=== PATIENT | female | born 1955 | race Caucasian/White ===

== ENCOUNTER 2020-08-05 08:40 | Outpatient (CLI) | payer MEDICARE, SELFPAY ==
--- NOTE | 2020-08-05 09:06 | XR_ITS ---
WS: [id number] Thoracic spine, 3 views, 08/05/2020 Clinical Data: MID BACK PAIN Comparison: None. Findings: No compression fractures are seen. The disc heights are normal. There is a minimal dextroscoliosis. There is diffuse osteoporosis. Minimal osteoarthritic spurring of the mid thoracic vertebral bodies is seen. There is a anterior cervical disc fusion. XR/XR thoracic spine 2V [id number] Impression: Minimal osteoarthritis and osteoporosis.
== END 2020-08-05 08:41 | disposition home or self-care (01) ==
PROVIDERS: PCP Nurse Practitioner Family; Visit Provider Nurse Practitioner Family
DX: M81.0 Age-related osteoporosis without current pathological fracture (principal); M47.814 Spondylosis without myelopathy or radiculopathy, thoracic region
CPT/HCPCS: 72070

== ENCOUNTER 2021-07-18 17:17 | Inpatient (IN) | payer MEDICARE, SELFPAY ==
[2021-07-18] VITALS (7 sets, daily range): BP systolic 73–148; BP diastolic 49–82; PULSE 77–83; RESP 15–22; TEMP 36.5; O2SAT 95–100; BMI 22.4
--- NOTE | 2021-07-18 17:59 | XRR_ITS ---
PROCEDURE INFORMATION: Exam: XR Chest Exam date and time: 07/18/2021 5:59 PM Age: 66 years old Clinical indication: Cough; Additional info: Dyspnea/cough TECHNIQUE: Imaging protocol: XR of the chest. Views: 1 view. COMPARISON: No relevant prior studies available. FINDINGS: Lungs: Minimal atelectasis in the left lung base. The right lung is clear. Pleural spaces: Unremarkable. No pleural effusion. No pneumothorax. Heart/Mediastinum: Unremarkable. No cardiomegaly. Bones/joints: C-spine hardware. XR/XR chest 1V portable [id number] IMPRESSION: No acute finding.
--- NOTE | 2021-07-18 17:59 | CTR_ITS ---
PROCEDURE INFORMATION: Exam: CT Abdomen And Pelvis With Contrast Exam date and time: 07/18/2021 5:59 PM Age: 66 years old Clinical indication: Nausea and vomiting; Abdominal pain; Prior surgery; Surgery type: Gb, hyst; Additional info: Abd pain TECHNIQUE: Imaging protocol: Computed tomography of the abdomen and pelvis with contrast. Radiation optimization: All CT scans at this facility use at least one of these dose optimization techniques: automated exposure control; mA and/or kV adjustment per patient size (includes targeted exams where dose is matched to clinical indication); or iterative reconstruction. Contrast material: OMNI 300; Contrast volume: 95 ml; Contrast route: INTRAVENOUS (IV); COMPARISON: CR (CHEST, ) 07/18/2021 6:13 PM RADIATION DOSE METRICS: Total DLP (mGy-cm): 848.44 FINDINGS: Lungs: Mild atelectasis in the lingula. Liver: Normal. No mass. Gallbladder and bile ducts: Multiple calcified stones in the gallbladder. No wall thickening. The bile ducts are normal. Pancreas: Diffuse pancreatic parenchymal edema. No focal lesion identified. Acute peripancreatic fluid and fat stranding, extending to the left pericolic gutter. No organized pseudocyst. Spleen: Calcified granuloma in a normal sized spleen. Adrenal glands: Normal. No mass. Kidneys and ureters: Multiple cortical and central hypodensities in the left kidney are too small to characterize but are most likely cysts. No follow-up imaging is recommended. No calculus or hydronephrosis. Stomach and bowel: Mild wall thickening in the 2nd portion of the duodenum. Mild dilatation of multiple loops of proximal small bowel measuring up to 3.0 cm. No transition point or obstruction. The mid and distal small bowel is within normal limits. The stomach and colon are unremarkable. Appendix: The appendix is not visualized. No secondary signs of appendicitis. Intraperitoneal space: Unremarkable. No free air. No significant fluid collection. Vasculature: Atherosclerotic calcifications. 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 Mild stenosis at the origin of the superior mesenteric artery. Lymph nodes: Unremarkable. No enlarged lymph nodes. Urinary bladder: Unremarkable as visualized. Reproductive: The uterus is absent. Normal small ovaries. Bones/joints: Minimal anterior wedging of T12. Soft tissues: Unremarkable. CT/CT abdomen pelvis w con* [id number] IMPRESSION: 1. Findings consistent with acute interstitial edematous pancreatitis. 2. Acute peripancreatic fluid. No organized pseudocyst. 3. Cholelithiasis. 4. Multiple mildly dilated loops of proximal small bowel could represent ileus. 5. Mild wall thickening in the proximal duodenum. This is most likely related to the adjacent inflamed pancreas. COMMENTS: Consistent with the [employer]'s Incidental Findings Committee white paper (J Am Kirstie Radiol 2018): Any incidental renal lesion less than 1 cm or classified as too small to characterize, or any incidental cystic renal lesion characterized as simple-appearing, is likely benign. No follow-up imaging is recommended for these lesions per consensus recommendations based on imaging criteria.
--- NOTE | 2021-07-18 18:13 | W.ED.ABDPA2 ---
HPI - Abdominal Pain General: Chief Complaint: Abdominal Pain Stated Complaint: ABD PAINS Time Seen by Provider: 07/18/21 17:46 Source: patient Mode of arrival: ambulatory Limitations: no limitations History of Present Illness: HPI narrative: 66-year-old female states that starting 2 hours ago she had immediate onset of epigastric abdominal pain that was very sharp in nature with vomiting. States she has vomited twice states the pain is currently a 8 out of 10 is worse with palpation improved with rest denies any diarrhea denies any history of pain like this before she has had an appendectomy in the past. Associated Symptoms: Reports nausea and vomiting; Denies chills, dysuria and fever(s) Review of Systems Const: Denies: fever(s), chills, body aches or change in appetite Eyes: Denies: blurry vision or eye discomfort ENMT: Denies: throat pain or dental pain Card: Denies: chest pain Resp: Denies: dyspnea GI: Reports: abdominal pain, nausea and vomiting : Denies: dysuria Musc: Denies: neck pain or back pain Skin/Breast: Denies: rash Neuro: Denies: headache(s) Psych: Denies: depression Janusz/Lymph: Denies: easy bruising All/Imm: Denies: urticaria Physical Exam Const: COMMON NORMALS: no acute distress, patient oriented x3 and healthy appearing HENMT: COMMON NORMALS: normocephalic and atraumatic HEAD & SCALP: normocephalic and atraumatic Eye: COMMON NORMALS: Equal, round and reactive pupils present and EOMs intact bilaterally PUPIL: Yes Equal, round and reactive pupils present Neck/C-Spine: COMMON NORMALS: full ROM and supple Chest: COMMONS NORMALS: normal inspection of the chest and normal palpation of entire chest wall Resp: COMMON NORMALS: normal respiratory effort, No retractions, No use of accessory muscles and clear to auscultation bilaterally AUSCULTATION: clear to auscultation bilaterally Cardio: COMMON NORMALS: regular rate, regular rhythm and No murmurs present (Cardio) RATE: regular rate RHYTHM: regular rhythm GI: COMMON NORMALS: Normal to inspection, nondistended, normoactive bowel sounds present, Soft to palpation and no masses PALPATION: Yes Soft to palpation and Yes Tenderness to palpation present (GI) (epigastric) Extremity: COMMON NORMALS: normal to inspection and full ROM Neuro: COMMON NORMALS: patient oriented x3, moves all extremities and no focal motor deficits Psych: COMMON NORMALS: mental status grossly normal, Normal thought process present and cooperative THOUGHT PROCESS: Normal thought process present Skin: COMMON NORMALS: no rashes or lesions noted and no wounds GENERAL SKIN EXAM: no rashes or lesions noted Course Vital Signs: Vital signs: Vital Signs Temperature 97.7 F 07/18/21 17:35 Pulse Rate 77 07/18/21 21:27 Respiratory Rate 20 H 07/18/21 22:47 Blood Pressure 147/75 07/18/21 21:27 Pulse Oximetry 96 07/18/21 22:47 MDM - Abdominal Pain MDM Narrative: Medical decision making narrative: Patient presents here with pancreatitis likely gallstone pancreatitis. Pain is much improved here after Dilaudid patient had MRCP no signs of choledocholithiasis I spoke to general surgery who is consulted Dr. Espinoza also spoke to the hospitalist and will admit here for her pancreatitis. Lab Data: Labs: Lab Results 07/18/21 07/18/21 07/18/21 18:00 18:10 18:10 WBC 20.1 10^3/uL H 10 ^3/uL (4.0-10.0) RBC 3.95 10^6/uL L 10 ^6/uL (4.1-5.3) Hgb 12.2 g/dL g/dL (11.5-15.3) Hct 37.8 % % (37.0-47.0) MCV 95.7 fl fl (81-99) MCH 30.9 pg pg (28.0-34.0) MCHC 32.3 g/dL g/dL (30.0-36.0) RDW 11.7 % L % (12.1-15.1) Plt Count 308 10^3/cmm 10^3 /cmm (130-400) MPV 10.3 fL fL (7.4-10.4) Neut % (Auto) 70.9 % % Lymph % (Auto) 20.9 % % Bollinger % (Auto) 6.1 % % Eos % (Auto) 1.1 % % Baso % (Auto) 0.5 % % Neut # (Auto) 14.23 10^3/uL H 1 0^3/uL (1.8-7.7) Lymph # (Auto) 4.2 10^3/uL 10^3/ uL (0.8-4.8) Bollinger # (Auto) 1.2 10^3/uL H 10^ 3/uL (0.2-0.9) Eos # (Auto) 0.2 10^3/uL 10^3/ uL (0.0-0.8) Baso # (Auto) 0.1 10^3/uL 10^3/ uL (0.0-0.1) Nucleated RBC % (a uto) 0 % % Nucleated RBCs # 0.0 /100WBC /100W BC Sodium 143 mmol/L mmol/L (136-145) Potassium 3.5 mmol/L mmol/L (3.5-5.1) Chloride 109 mmol/L H mmol /L (98-107) Carbon Dioxide 17 mmol/L L mmol/ L (22-29) Anion Gap 20.5 H (5-19) BUN 17 mg/dL mg/dL (8-23) Creatinine 0.8 mg/dL mg/dL (0.5-0.9) GFR Calculation 71.3 mL/min L mL/ min (90-130) Glucose 139 mg/dL H mg/dL (65-115) POC Glucose Calculated Osmolal ity 300 mOsm/kg H mOs m/kg (285-295) Lactic Acid Calcium 8.4 mg/dL L mg/dL (8.5-10.5) Magnesium 1.4 mg/dL L mg/dL (1.7-2.3) Total Bilirubin 0.4 mg/dL mg/dL (0.15-1.2) AST 27 U/L U/L (0-32) ALT 19 U/L U/L (0-33) Alkaline Phosphata se 64 IU/L IU/L (35-105) Total Protein 6.4 g/dL L g/dL (6.6-8.7) Albumin 3.8 g/dL g/dL (3.5-5.2) Globulin 2.6 g/dL g/dL (1.3-4.6) Triglycerides 75 mg/dL mg/dL (0-150) Lipase > 97068 U/L H U/L (13-60) Urine Color Urine Appearance Urine pH Ur Specific Gravit y Urine Protein Urine Glucose (UA) Urine Ketones Urine Blood Urine Nitrate Urine Bilirubin Urine Urobilinogen Ur Leukocyte Olamide ase 07/18/21 07/18/21 07/18/21 18:10 19:38 21:57 WBC RBC Hgb Hct MCV MCH MCHC RDW Plt Count MPV Neut % (Auto) Lymph % (Auto) Bollinger % (Auto) Eos % (Auto) Baso % (Auto) Neut # (Auto) Lymph # (Auto) Bollinger # (Auto) Eos # (Auto) Baso # (Auto) Nucleated RBC % (a uto) Nucleated RBCs # Sodium Potassium Chloride Carbon Dioxide Anion Gap BUN Creatinine GFR Calculation Glucose POC Glucose 179 mg/dL H mg/dL (70-110) Calculated Osmolal ity Lactic Acid 1.1 mmol/L mmol/L (0.5-2.2) Calcium Magnesium Total Bilirubin AST ALT Alkaline Phosphata se Total Protein Albumin Globulin Triglycerides Lipase Urine Color Yellow (Yellow) Urine Appearance Clear (CLEAR) Urine pH 7 (5-7) Ur Specific Gravit y 1.020 (1.005-1.030) Urine Protein Trace (Negative) Urine Glucose (UA) Norm (Normal) Urine Ketones 2+ H (Negative) Urine Blood Neg (Negative) Urine Nitrate Negative (Negative) Urine Bilirubin Neg (Negative) Urine Urobilinogen Norm mg/dL mg/dL (Negative) Ur Leukocyte Olamide ase Negative (Negative) Imaging Data ^: MRI: Attestation: I personally reviewed and interpreted this imaging study as follows: Radiologist's impression: [address] [address] Magnetic Resonance Report Signed Patient: Selene Brooks Unit #: [id number] : 1955 Age/Sex: 66 / F ADM Date: 07/18/21 Loc: ER Room/Bed: Attending Dr: Ordering Provider/Ordering MD: Anisa Jiménez MD Date of Service: 07/18/21 Procedure(s): MR MRCP [id number] Accession Number(s): [id number] Report Number: [id number] PROCEDURE INFORMATION: Exam: MR Abdomen Without Contrast Exam date and time: 07/18/2021 9:16 PM Age: 66 years old Clinical indication: Abdominal pain; Additional info: Pancreatitis rule out choledocholithiasis TECHNIQUE: Imaging protocol: MR of the abdomen without contrast. COMPARISON: CT abdomen pelvis w con* [id number] 07/18/2021 7:18 PM FINDINGS: Liver: No mass. Gallbladder and bile ducts: Multiple gallstones in the gallbladder measuring up to 2.1 cm. No gallbladder wall thickening. The bile ducts are normal in caliber. No intraductal filling defect identified. Pancreas: Diffuse parenchymal edema throughout the pancreas. Acute peripancreatic fluid and stranding surrounding the pancreas and extending into the right and left retroperitoneum and the left pericolic gutter. No organized pseudocyst. Small amount of pericholecystic fluid, contiguous with the peripancreatic fluid. Spleen: Unremarkable. No splenomegaly. Adrenal glands: Unremarkable. No mass. Kidneys and ureters: Benign central cysts in the left kidney. The right kidney is normal. Stomach and bowel: Visualized stomach and intestines are unremarkable. Intraperitoneal space: No free fluid. Arteries: No abdominal aortic aneurysm. Bones/joints: Unremarkable. Soft tissues: Unremarkable. MR/MR MRCP [id number] IMPRESSION: 1. No evidence for choledocholithiasis or biliary abnormality. 2. Acute interstitial edematous pancreatitis with acute peripancreatic fluid. 3. Cholelithiasis. No evidence for acute cholecystitis. COMMENTS: Consistent with the [employer]'s Incidental Findings Committee white paper (J Am Kirstie Radiol 2018): Any incidental renal lesion less than 1 cm or classified as too small to characterize, or any incidental cystic renal lesion characterized as simple-appearing, is likely benign. No follow-up imaging is recommended for these lesions per consensus recommendations based on imaging criteria. Dictated By: Bandar Tsang Signed By: Bandar Tsang Signed Date/Time: 07/18/212303 DD/ 15 CT Abd/Pel: Radiologist's impression: [address] [address] [address] Scan Report Signed Patient: Selene Brooks Unit #: [id number] : 1955 Age/Sex: 66 / F ADM Date: 07/18/21 Loc: ER Room/Bed: Attending Dr: Ordering Provider/Ordering MD: Johnny Sheikh DO Date of Service: 07/18/21 Procedure(s): CT abdomen pelvis w con* [id number] Accession Number(s): [id number] Report Number: [id number] PROCEDURE INFORMATION: Exam: CT Abdomen And Pelvis With Contrast Exam date and time: 07/18/2021 5:59 PM Age: 66 years old Clinical indication: Nausea and vomiting; Abdominal pain; Prior surgery; Surgery type: Gb, hyst; Additional info: Abd pain TECHNIQUE: Imaging protocol: Computed tomography of the abdomen and pelvis with contrast. Radiation optimization: All CT scans at this facility use at least one of these dose optimization techniques: automated exposure control; mA and/or kV adjustment per patient size (includes targeted exams where dose is matched to clinical indication); or iterative reconstruction. Contrast material: OMNI 300; Contrast volume: 95 ml; Contrast route: INTRAVENOUS (IV); COMPARISON: CR (CHEST, ) 07/18/2021 6:13 PM RADIATION DOSE METRICS: Total DLP (mGy-cm): 848.44 FINDINGS: Lungs: Mild atelectasis in the lingula. Liver: Normal. No mass. Gallbladder and bile ducts: Multiple calcified stones in the gallbladder. No wall thickening. The bile ducts are normal. Pancreas: Diffuse pancreatic parenchymal edema. No focal lesion identified. Acute peripancreatic fluid and fat stranding, extending to the left pericolic gutter. No organized pseudocyst. Spleen: Calcified granuloma in a normal sized spleen. Adrenal glands: Normal. No mass. Kidneys and ureters: Multiple cortical and central hypodensities in the left kidney are too small to characterize but are most likely cysts. No follow-up imaging is recommended. No calculus or hydronephrosis. Stomach and bowel: Mild wall thickening in the 2nd portion of the duodenum. Mild dilatation of multiple loops of proximal small bowel measuring up to 3.0 cm. No transition point or obstruction. The mid and distal small bowel is within normal limits. The stomach and colon are unremarkable. Appendix: The appendix is not visualized. No secondary signs of appendicitis. Intraperitoneal space: Unremarkable. No free air. No significant fluid collection. Vasculature: Atherosclerotic calcifications. 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 Mild stenosis at the origin of the superior mesenteric artery. Lymph nodes: Unremarkable. No enlarged lymph nodes. Urinary bladder: Unremarkable as visualized. Reproductive: The uterus is absent. Normal small ovaries. Bones/joints: Minimal anterior wedging of T12. Soft tissues: Unremarkable. CT/CT abdomen pelvis w con* [id number] IMPRESSION: 1. Findings consistent with acute interstitial edematous pancreatitis. 2. Acute peripancreatic fluid. No organized pseudocyst. 3. Cholelithiasis. 4. Multiple mildly dilated loops of proximal small bowel could represent ileus. 5. Mild wall thickening in the proximal duodenum. This is most likely related to the adjacent inflamed pancreas. COMMENTS: Consistent with the [employer] [employer]'s Incidental Findings Committee white paper (J Am Kirstie Radiol 2018): Any incidental renal lesion less than 1 cm or classified as too small to characterize, or any incidental cystic renal lesion characterized as simple-appearing, is likely benign. No follow-up imaging is recommended for these lesions per consensus recommendations based on imaging criteria. Dictated By: Bandar Tsang Signed By: Bandar Tsang Signed Date/Time: 07/18/211941 DD/ 58 EKG Data ^: EKG 1: Attestation: I personally reviewed and interpreted this EKG as follows: EKG interpretation date: 07/18/21 EKG interpretation time: 18:02 Interpretation: nsr hr [address] or t wave abnormalities qrs 82 qtc 431 Discharge Plan Discharge Patient Disposition: Admitted As Inpatient Clinical Impression: Pancreatitis Qualifiers: Chronicity: acute Pancreatitis type: unspecified pancreatitis type Acute pancreatitis complication: unspecified Qualified Code(s): K85.90 - Acute pancreatitis without necrosis or infection, unspecified Condition: Stable Coding Level of Care Code 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
[2021-07-18] MEDS: sodium chloride 0.9% 1,000 ML 999 ML IV (18:19)
[2021-07-18] MEDS: morphine 4 mg/mL SDV 1 mL IVP (18:20)
[2021-07-18] MEDS: ondansetron 2 mg/ML SDV 2 mL 4 MG IVP ×2 (18:20→22:47)
[2021-07-18 18:21] LABS: Basophils # 0.1 10^3/uL (0.0-0.1); Basophils % 0.5 %; Eosinophils # 0.2 10^3/uL (0.0-0.8); Eosinophils % 1.1 %; Hematocrit 37.8 % (37.0-47.0); Hemoglobin 12.2 g/dL (11.5-15.3); Lymphocytes # 4.2 10^3/uL (0.8-4.8); Lymphocytes % 20.9 %; Mean Corpuscular HGB Conc 32.3 g/dL (30.0-36.0); Mean Corpuscular Hemoglobin 30.9 pg (28.0-34.0); Mean Corpuscular Volume 95.7 fl (81-99); Mean Platelet Volume 10.3 fL (7.4-10.4); Monocytes # 1.2 10^3/uL (0.2-0.9); Monocytes % 6.1 %; Neutrophils # 14.23 10^3/uL (1.8-7.7); Neutrophils % 70.9 %; Nucleated Red Blood Cells % 0 %; Platelet Count 308 10^3/cmm (130-400); Red Blood Count 3.95 10^6/uL (4.1-5.3); Red Cell Distribution Width 11.7 % (12.1-15.1); White Blood Count 20.1 10^3/uL (4.0-10.0)
[2021-07-18 18:35] LABS: Alanine Aminotransferase 19 U/L (0-33); Albumin Level 3.8 g/dL (3.5-5.2); Alkaline Phosphatase 64 IU/L (35-105); Blood Urea Nitrogen 17 mg/dL (8-23); Calcium 8.4 mg/dL (8.5-10.5); Carbon Dioxide 17 mmol/L (22-29); Chloride 109 mmol/L (98-107); Globulin 2.6 g/dL (1.3-4.6); Glomerular Filtration Rate 71.3 mL/min (90-130); Glucose 139 mg/dL (65-115); Magnesium 1.4 mg/dL (1.7-2.3); Osmolality Calculated 300 mOsm/kg (285-295); Sodium 143 mmol/L (136-145); Total Bilirubin 0.4 mg/dL (0.15-1.2); Total Protein 6.4 g/dL (6.6-8.7)
[2021-07-18 18:36] LABS: Lactic Sepsis W/Reflex 1.1 mmol/L (0.5-2.2)
[2021-07-18 18:38] LABS: Anion Gap 20.5 (5-19); Aspartate Amino Transferase 27 U/L (0-32); Potassium 3.5 mmol/L (3.5-5.1)
--- NOTE | 2021-07-18 18:53 | ECG_ITS ---
[facility] Test Date: 2021-07-18 Pat Name: Selene Brooks Department: Room: Gender: Female Credit Compliance Officer: : 1955 Requested By: Anisa Jiménez Order Number: [id number] Oralia MD: Raul Casey M.D. Measurements Intervals Point Roberts Rate: 70 P: 50 CT: 141 QRS: 2 QRSD: 82 T: 32 QT: 409 QTc: 444 Interpretive Statements SINUS RHYTHM POSSIBLE RIGHT VENTRICULAR CONDUCTION DELAY [RSR (QR) IN V1/V2] No previous ECG available for comparison Electronically Signed On 07-19-2021 0:16:13 PRINTS AND DRAWINGS CURATOR by Raul Casey M.D. [email or web address]
[2021-07-18] MEDS: iohexol 300 mg/mL 100 mL Btl IV (19:19)
--- NOTE | 2021-07-18 19:34 | USR_ITS ---
PROCEDURE INFORMATION: Exam: US Abdomen, Limited; Right Upper Quadrant Exam date and time: 07/18/2021 7:34 PM Age: 66 years old Clinical indication: Abdominal pain; Patient HX: H/o appendectomy , ad hyst; Additional info: Ruq pain TECHNIQUE: Imaging protocol: US abdomen. Real time ultrasound with image documentation. Limited exam focused on the right upper quadrant. COMPARISON: CT abdomen pelvis w con* [id number] 07/18/2021 7:18 PM FINDINGS: Liver: The liver is of normal size and echogenicity measuring 13.3 cm. Gallbladder: Multiple shadowing calculi in the gallbladder. The gallbladder measures 11.2 cm in length. The wall thickness measures up to 3 mm. No pericholecystic fluid. Common bile duct: Normal. No stones. No dilation. Pancreas: Visualized pancreas is unremarkable. Right kidney: Borderline right renal cortical thinning. US/US gall bladder [id number] IMPRESSION: 1. Distended gallbladder with gallstones. The gallbladder wall thickness is upper normal. Early acute cholecystitis cannot be excluded.
[2021-07-18 19:41] LABS: Add Urine Microscopic? NO; Charge for UA Resulting for Rev
[2021-07-18 19:46] LABS: Glucose Urine UA Norm (Normal); Ketones Urine 2+ (Negative); Protein Urine Trace (Negative); Urine Appearance Clear (CLEAR); Urine Color Yellow (Yellow); pH Urine 7 (5-7)
[2021-07-18 19:47] LABS: Bilirubin Urine Neg (Negative); Blood Urine Neg (Negative); Leukocyte Esterase Urine Negative (Negative); Nitrate Urine Negative (Negative); Urobilinogen Urine Norm (Negative)
[2021-07-18 20:58] LABS: Triglycerides 75 mg/dL (0-150)
--- NOTE | 2021-07-18 21:16 | MRR_ITS ---
PROCEDURE INFORMATION: Exam: MR Abdomen Without Contrast Exam date and time: 07/18/2021 9:16 PM Age: 66 years old Clinical indication: Abdominal pain; Additional info: Pancreatitis rule out choledocholithiasis TECHNIQUE: Imaging protocol: MR of the abdomen without contrast. COMPARISON: CT abdomen pelvis w con* [id number] 07/18/2021 7:18 PM FINDINGS: Liver: No mass. Gallbladder and bile ducts: Multiple gallstones in the gallbladder measuring up to 2.1 cm. No gallbladder wall thickening. The bile ducts are normal in caliber. No intraductal filling defect identified. Pancreas: Diffuse parenchymal edema throughout the pancreas. Acute peripancreatic fluid and stranding surrounding the pancreas and extending into the right and left retroperitoneum and the left pericolic gutter. No organized pseudocyst. Small amount of pericholecystic fluid, contiguous with the peripancreatic fluid. Spleen: Unremarkable. No splenomegaly. Adrenal glands: Unremarkable. No mass. Kidneys and ureters: Benign central cysts in the left kidney. The right kidney is normal. Stomach and bowel: Visualized stomach and intestines are unremarkable. Intraperitoneal space: No free fluid. Arteries: No abdominal aortic aneurysm. Bones/joints: Unremarkable. Soft tissues: Unremarkable. MR/MR MRCP [id number] IMPRESSION: 1. No evidence for choledocholithiasis or biliary abnormality. 2. Acute interstitial edematous pancreatitis with acute peripancreatic fluid. 3. Cholelithiasis. No evidence for acute cholecystitis. COMMENTS: Consistent with the [place] [employer]'s Incidental Findings Committee white paper (J Am Kirstie Radiol 2018): Any incidental renal lesion less than 1 cm or classified as too small to characterize, or any incidental cystic renal lesion characterized as simple-appearing, is likely benign. No follow-up imaging is recommended for these lesions per consensus recommendations based on imaging criteria.
[2021-07-18 21:59] LABS: Glucose Point of Care 179 mg/dL (70-110)
[2021-07-18] MEDS: HYDROmorphone 1 mg/mL INJ 1 mL IVP (22:47)
[2021-07-18] MEDS: levofloxacin-dextrose 5 % 750 MG/150 ML PREMIX 100 MG IV (23:46)
[2021-07-19] VITALS (12 sets, daily range): BP systolic 121–159; BP diastolic 71–90; PULSE 81–121; RESP 12–25; TEMP 36.6–37.1; O2SAT 93–99
--- NOTE | 2021-07-19 02:34 | P.HP_ITS ---
Providers/Chief Complaint Admitting Physician: Kristen Andujar MD Primary Care Provider: Erna Hunter NP Chief Complaint: ABD PAINS History of Present Illness Selene Brooks is a 66 year old female past medical history of diabetes mellitus presenting to the emergency room with upper abdominal pain that started approximately 1 hour prior to ER arrival. Pain was in the epigastric region, sudden in onset, radiating into the back in a bandlike fashion. Has never had similar pain in the past. No past history of pancreatitis. CT of the abdomen here shows acute interstitial pancreatitis, elevated lipase greater than 12,000. LFTs within normal range. She underwent a CAT scan and then an MRCP which was negative for any biliary dilatation or obstructive gallstones. MRCP meron tionally negative for acute cholecystitis. At this time patient has received morphine and as needed Zofran after which the pain and nausea and nausea are better controlled. No history of binge alcohol intake. Patient states she does not consume alcohol at a baseline. No recent medications have been added to her regimen. Triglycerides are within normal range. Review of Systems General: Reports: 10 or more systems reviewed and unremarkable except in HPI and below Const: Denies: fever(s), chills or body aches Eyes: Denies: change in vision, blurry vision or photophobia ENMT: Reports: hoarseness; Denies: throat pain, enlarged tonsils, odynophagia or nasal congestion Card: Denies: chest pain, palpitations, irregular heart rhythm, edema, swel ling of feet/ankles, lightheadedness, pre-syncope, dyspnea on exertion or orthopnea Resp: Denies: dyspnea, productive cough, non-productive cough, wheezing, stridor, pain on inspiration, change in phlegm color, hemoptysis or chest congestion GI: Denies: abdominal pain, nausea, vomiting, hematemesis, coffee ground emesis, dysphagia, heartburn, diarrhea, constipation, GI cramping, change in stool character, hematochezia or melena : Denies: flank pain, difficulty voiding, dysuria, urinary frequency, urinary urgency, urinary hesitancy or hematuria Musc: Denies: neck pain, back pain, extremity pain, joint swelling, joint warmth or deformity Neuro: Denies: headache(s), numbness in extremities, weakness in extremities, sensory changes, difficulty walking, frequent falls, dizziness, vertigo, behavioral changes, Slurred speech present or seizure-like activity Psych: Denies: anxiety, depression, suicidal ideation or homicidal ideation Endo: Denies: polyuria, polydipsia, tired all the time, cold intolerance or hot flashes Janusz/Lymph: Denies: easy bruising or easy bleeding Medications/Allergies Allergies Allergy/AdvReac Type Severity Reaction Status Date / Time Penicillins Allergy ALGY-Hives Verified 07/18/21 18:17 PFSH Acute PFSH: Medical History (Updated 07/19/21 @ 06:33 by Kristen Andujar MD) Type 2 diabetes mellitus Vitals/I&O/Wt Last Vital Signs Temp 97.7 F 07/18/21 17:35 Pulse 83 07/18/21 23:52 Resp 17 07/18/21 23:52 BP 117/82 07/18/21 23:52 Pulse Ox 95 07/18/21 23:52 Weight last 48 hrs Weight 61.235 kg Physical Exam Narrative: EXAM NARRATIVE: General: No acute distress, AO x3 HEENT: PERRLA, pupils bilaterally equal and reactive, pallors not present Chest: Normal vesicular breath sounds, no added sounds, equal good air entry bilaterally CVS: S1-S2 regular, no murmurs, no tachycardia, no gallops, no rubs Abdomen: Soft, TTP in epigastric region Neuro: No focal deficits, no facial deformity, AO x3, power 5/5 in all limbs Extremities: Healthy surgical dressing present on the right hip, mild tenderness, soft no erythema. Data : 07/18/21 18:10 07/18/21 18:10 Attestation for Other Data: I personally reviewed and interpreted the following: Other data: Laboratory Results WBC 20.1 10^3/uL (4.0-10.0) H 07/18/21 18:10 RBC 3.95 10^6/uL (4.1-5.3) L 07/18/21 18:10 Hgb 12.2 g/dL (11.5-15.3) 07/18/21 18:10 Hct 37.8 % (37.0-47.0) 07/18/21 18:10 MCV 95.7 fl (81-99) 07/18/21 18:10 MCH 30.9 pg (28.0-34.0) 07/18/21 18:10 MCHC 32.3 g/dL (30.0-36.0) 07/18/21 18:10 RDW 11.7 % (12.1-15.1) L 07/18/21 18:10 Plt Count 308 10^3/cmm (130-400) 07/18/21 18:10 MPV 10.3 fL (7.4-10.4) 07/18/21 18:10 Neut % (Auto) 70.9 % 07/18/21 18:10 Lymph % (Auto) 20.9 % 07/18/21 18:10 Hart % (Auto) 6.1 % 07/18/21 18:10 Eos % (Auto) 1.1 % 07/18/21 18:10 Baso % (Auto) 0.5 % 07/18/21 18:10 Neut # (Auto) 14.23 10^3/uL (1.8-7.7) H 07/18/21 18:10 Lymph # (Auto) 4.2 10^3/uL (0.8-4.8) 07/18/21 18:10 Hart # (Auto) 1.2 10^3/uL (0.2-0.9) H 07/18/21 18:10 Eos # (Auto) 0.2 10^3/uL (0.0-0.8) 07/18/21 18:10 Baso # (Auto) 0.1 10^3/uL (0.0-0.1) 07/18/21 18:10 Nucleated RBC % (auto) 0 % 07/18/21 18:10 Nucleated RBCs # 0.0 /100WBC 07/18/21 18:10 Sodium 143 mmol/L (136-145) 07/18/21 18:10 Potassium 3.5 mmol/L (3.5-5.1) 07/18/21 18:10 Chloride 109 mmol/L (98-107) H 07/18/21 18:10 Carbon Dioxide 17 mmol/L (22-29) L 07/18/21 18:10 Anion Gap 20.5 (5-19) H 07/18/21 18:10 BUN 17 mg/dL (8-23) 07/18/21 18:10 Creatinine 0.8 mg/dL (0.5-0.9) 07/18/21 18:10 GFR Calculation 71.3 mL/min (90-130) L 07/18/21 18:10 Glucose 139 mg/dL (65-115) H 07/18/21 18:10 POC Glucose 179 mg/dL (70-110) H 07/18/21 21:57 Calculated Osmolality 300 mOsm/kg (285-295) H 07/18/21 18:10 Lactic Acid 1.1 mmol/L (0.5-2.2) 07/18/21 18:10 Calcium 8.4 mg/dL (8.5-10.5) L 07/18/21 18:10 Magnesium 1.4 mg/dL (1.7-2.3) L 07/18/21 18:10 Total Bilirubin 0.4 mg/dL (0.15-1.2) 07/18/21 18:10 AST 27 U/L (0-32) 07/18/21 18:10 ALT 19 U/L (0-33) 07/18/21 18:10 Alkaline Phosphatase 64 IU/L (35-105) 07/18/21 18:10 Total Protein 6.4 g/dL (6.6-8.7) L 07/18/21 18:10 Albumin 3.8 g/dL (3.5-5.2) 07/18/21 18:10 Globulin 2.6 g/dL (1.3-4.6) 07/18/21 18:10 Triglycerides 75 mg/dL (0-150) 07/18/21 18:00 Lipase > 97176 U/L (13-60) H 07/18/21 18:10 Urine Color Yellow (Yellow) 07/18/21 19:38 Urine Appearance Clear (CLEAR) 07/18/21 19:38 Urine pH 7 (5-7) 07/18/21 19:38 Ur Specific [place] 1.020 (1.005-1.030) 07/18/21 19:38 Urine Protein Trace (Negative) 07/18/21 19:38 Urine Glucose (UA) Norm (Normal) 07/18/21 19:38 Urine Ketones 2+ (Negative) H 07/18/21 19:38 Urine Blood Neg (Negative) 07/18/21 19:38 Urine Nitrate Negative (Negative) 07/18/21 19:38 Urine Bilirubin Neg (Negative) 07/18/21 19:38 Urine Urobilinogen Norm mg/dL (Negative) 07/18/21 19:38 Ur Leukocyte Esterase Negative (Negative) 07/18/21 19:38 Ethyl Alcohol < 10 mg/dL (0-10) 07/18/21 18:00 Impressions Abdomen/Pelvis CT 07/18/21 17:59 IMPRESSION: 1. Findings consistent with acute interstitial edematous pancreatitis. 2. Acute peripancreatic fluid. No organized pseudocyst. 3. Cholelithiasis. 4. Multiple mildly dilated loops of proximal small bowel could represent ileus. 5. Mild wall thickening in the proximal duodenum. This is most likely related to the adjacent inflamed pancreas. COMMENTS: Consistent with the [employer] [place] [employer]'s Incidental Findings Committee white paper (J Am Kirstie Radiol 2018): Any incidental renal lesion less than 1 cm or classified as too small to characterize, or any incidental cystic renal lesion characterized as simple-appearing, is likely benign. No follow-up imaging is recommended for these lesions per consensus recommendations based on imaging criteria. Chest X-Ray 07/18/21 17:59 IMPRESSION: No acute finding. Gallbladder Ultrasound 07/18/21 19:34 IMPRESSION: 1. Distended gallbladder with gallstones. The gallbladder wall thickness is upper normal. Early acute cholecystitis cannot be excluded. Cholangiopancreatography MRI 07/18/21 21:16 IMPRESSION: 1. No evidence for choledocholithiasis or biliary abnormality. 2. Acute interstitial edematous pancreatitis with acute peripancreatic fluid. 3. Cholelithiasis. No evidence for acute cholecystitis. COMMENTS: Consistent with the [employer] [place] [employer]'s Incidental Findings Committee white paper (J Am Kirstie Radiol 2018): Any incidental renal lesion less than 1 cm or classified as too small to characterize, or any incidental cystic renal lesion characterized as simple-appearing, is likely benign. No follow-up imaging is recommended for these lesions per consensus recommendations based on imaging criteria. A&P Assessment and plan (1) Pancreatitis: Admit to med/surg Bowel rest, NPO except for few sips of water CT chest with acute interstitial pancreatitis, no findings of pancreatic necrosis currently . Associated findings of ileus TG within range LFTs within range at this time IVF NS @ 125 cc/hr prn morphine alternating with toradol for pain management prn zofran for nausea, vomiting CXR without any associated effusions gen/surg consulted from ER Status: Acute Qualifiers: Acute pancreatitis complication: unspecified Chronicity: acute Pancreatitis type: unspecified pancreatitis type Qualified Code(s): K85.90 - Acute pancreatitis without necrosis or infection, unspecified Attestations Medical Necessity Statement*: anticipate >2midnight admission for acute int erstitial pancreatitis, need for bowel rest, IVF , conservative mgmt for now Coding Level of Care Code 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
[2021-07-19] MEDS: morphine 4 mg/mL SDV 1 mL 2 MG IVP ×3 (03:16→17:19)
[2021-07-19] MEDS: famotidine 20 mg/2 mL INJ IVP ×2 (03:16→15:35)
[2021-07-19] MEDS: enoxaparin 40 mg/0.4 mL Syringe SUBCUT (03:19)
[2021-07-19] MEDS: ondansetron 2 mg/ML SDV 2 mL 4 MG IVP ×3 (03:38→17:19)
[2021-07-19] MEDS: sodium chlor 0.9% + KCl 20 mEq 20 MEQ/1,000 ML BAG 125 MEQ IV ×3 (03:56→22:37)
[2021-07-19 06:32] LABS: Alcohol Level < 10 mg/dL (0-10)
[2021-07-19 08:14] LABS: Glucose Point of Care 135 mg/dL (70-110)
[2021-07-19 08:48] LABS: Amphetamines Screen Urine Negative (Negative); Barbiturates Screen Urine Negative (Negative); Benzodiazepines Screen Urine Negative (Negative); Cocaine Screen Urine Negative (Negative); Opiate Screen Urine Negative (Negative); PCP Screen Urine Negative (Negative); THC Screen Urine Negative (Negative)
[2021-07-19 11:42] LABS: Lipase 1887 U/L (13-60)
[2021-07-19 12:49] LABS: Glucose Point of Care 124 mg/dL (70-110)
--- NOTE | 2021-07-19 16:06 | PM.CONSULT ---
Providers/Reason For Consult Consulting Physician/Specialty*: General Surgery Dr. Espinoza Reason for Consult*: Pancreatitis Attending Physician: Sol Finn MD Primary Care Provider: Erna Hunter NP History of Present Illness History of Present Illness Selene Brooks is a 66 year old female presented to the ER yesterday after she developed severe abdominal pain with nausea and vomiting in the afternoon. Patient states that she had not eaten for a few hours prior to that. No similar episodes in the past. Patient does not drink any alcohol. She usually does not have any difficulty with eating spicy or fatty foods. No history of peptic ulcer disease. Her last colonoscopy was when she was around 58. Since admission patient has mainly been complaining of nausea and epigastric pain, no vomiting. She is currently tolerating ice chips. Review of Systems General: Reports: 10 or more systems reviewed and unremarkable except in HPI and below Meds/Allergies Home Medications and Allergies Home Medications Medication Instructions Recorded Confirmed Last Taken Type alendronate 70 mg PO Q7D 07/19/21 07/19/21 07/16/21 History aspirin 81 mg PO DAILY 07/19/21 07/19/21 07/18/21 History atorvastatin 40 mg PO DAILY 07/19/21 07/19/21 07/18/21 History cholecalciferol (vitamin D3) 25 mcg PO DAILY 07/19/21 07/19/21 07/18/21 History [Vitamin D3] coenzyme Q10 50 mg PO DAILY 07/19/21 07/19/21 07/18/21 History glipizide 5 mg PO BID 07/19/21 07/19/21 07/18/21 History insulin glargine [Lantus U-100 15 unit SUBCUT BEDTIME 07/19/21 07/19/21 07/18/21 History Insulin] metformin 1,000 mg PO BID 07/19/21 07/19/21 07/18/21 History metoprolol tartrate 25 mg PO BID 07/19/21 07/19/21 07/18/21 History ramipril 10 mg PO DAILY 07/19/21 07/19/21 07/18/21 History Allergies Allergy/AdvReac Type Severity Reaction Status Date / Time Penicillins Allergy ALGY-Hives Verified 07/18/21 18:17 Current Medications Current Medications Generic Name Dose Route Start Last Admin Trade Name Freq PRN Reason Stop Dose Admin Enoxaparin Sodium 40 mg 07/19/21 03:00 07/19/21 03:19 Enoxaparin 40 Mg/0.4 Ml Syringe SUBCUT 40 mg Q24H DIANNA Administration Famotidine 20 mg 07/19/21 02:45 07/19/21 15:35 Famotidine 20 Mg/2 Ml Inj IVP 20 mg Q12H DIANNA Administration Potassium Chloride/Sodium Chloride 20 meq in 1,000 mls @ 125 mls/hr 07/19/21 02:45 07/19/21 12:48 Sodium Chlor 0.9% + Kcl 20 Meq IV 125 mls/hr .Q8H DIANNA Administration Insulin Human Lispro 0 unit 07/19/21 08:00 07/19/21 12:49 Insulin Lispro 100 Unit/1 Ml SUBCUT Not Given WM&BEDTIME [facility] Protocol Morphine Sulfate 2 mg 07/19/21 02:41 07/19/21 09:12 Morphine 4 Mg/Ml Sdv 1 Ml IVP 2 mg Q4H PRN Administration SEVERE PAIN Ondansetron HCl 4 mg 07/19/21 03:32 07/19/21 09:12 Ondansetron 2 Mg/Ml Sdv 2 Ml IVP 4 mg Q6H PRN Administration NAUSEA AND VOMITING PFSH Acute PFSH: Medical History (Updated 07/19/21 @ 16:26 by Zoran Espinoza MD) Type 2 diabetes mellitus Surgical History (Updated 07/19/21 @ 16:26 by Zoran Espinoza MD) H/O: hysterectomy Status post colonoscopy Vitals/I&O/Wt Last Vital Signs Temp 97.7 F 07/18/21 17:35 Pulse 117 H 07/19/21 13:46 Resp 15 07/19/21 13:46 BP 142/86 07/19/21 13:46 Pulse Ox 95 07/19/21 13:46 07/19/21 07/19/21 07/19/21 06:59 14:59 22:59 Intake Total 1000 / 1000 Balance 1000 / 1000 Weight last 48 hrs Weight 135 lb Physical Exam Narrative: EXAM NARRATIVE: HEENT: Normocephalic Eye: Sclera /conjunctiva normal Respiratory and chest: Bilateral clear breath sounds on auscultation Cardiovascular: Normal S1 and S2 heart sounds Abdomen: Soft to palpation, tender epigastric region as well as right lower quadrant, nondistended Neurological: Oriented to place person and time Skin: Intact, no lesions appreciated on gross exam A&P Assessment and plan (1) Pancreatitis: 66-year-old female who presents with abdominal pain nausea and vomiting of less than 24 hours duration and was noted to have a WBC of 20.1 and lipase [id number]. Patient is hemodynamically stable. MRCP: Evidence of choledocholithiasis, acute edematous pancreatitis with pancreatic fluid, cholelithiasis Gallbladder ultrasound: Distended gallbladder with gallstones CT abdomen pelvis: Acute edematous pancreatitis with cholelithiasis, ileus Continue IV fluids Bowel rest, okay to have ice chips Check labs Status: Acute Qualifiers: Acute pancreatitis complication: unspecified Chronicity: acute Pancreatitis type: unspecified pancreatitis type Qualified Code(s): K85.90 - Acute pancreatitis without necrosis or infection, unspecified (2) Cholelithiasis: Once pancreatitis has resolved patient will need laparoscopic cholecystectomy and hopefully we can plan for it early next week. 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
[2021-07-19 16:58] LABS: Glucose Point of Care 155 mg/dL (70-110)
[2021-07-19 17:17] LABS: Basophils % 0.1 %; Hematocrit 38.1 % (37.0-47.0); Hemoglobin 12.6 g/dL (11.5-15.3); Lymphocytes # 1.4 10^3/uL (0.8-4.8); Mean Corpuscular HGB Conc 33.1 g/dL (30.0-36.0); Mean Corpuscular Hemoglobin 30.6 pg (28.0-34.0); Mean Corpuscular Volume 92.5 fl (81-99); Mean Platelet Volume 9.3 fL (7.4-10.4); Monocytes % 6.3 %; Neutrophils % 84.3 %; Nucleated Red Blood Cells % 0 %; Platelet Count 313 10^3/cmm (130-400); Red Blood Count 4.12 10^6/uL (4.1-5.3); Red Cell Distribution Width 11.9 % (12.1-15.1); White Blood Count 15.7 10^3/uL (4.0-10.0)
[2021-07-19] MEDS: cefepime 2,000 MG in sodium chloride 0.9% (plus) 50 ML 100 MG IV (17:20)
[2021-07-19 17:42] LABS: Anion Gap 19.1 (5-19); Blood Urea Nitrogen 16 mg/dL (8-23); Carbon Dioxide 21 mmol/L (22-29); Chloride 102 mmol/L (98-107); Glomerular Filtration Rate 83.2 mL/min (90-130); Glucose 159 mg/dL (65-115); Osmolality Calculated 291 mOsm/kg (285-295); Potassium 4.1 mmol/L (3.5-5.1); Sodium 138 mmol/L (136-145)
[2021-07-19] MEDS: ketorolac 30 mg/mL INJ 15 MG IVP (20:49)
[2021-07-19 21:28] LABS: Glucose Point of Care 147 mg/dL (70-110)
[2021-07-20] VITALS (11 sets, daily range): BP systolic 112–135; BP diastolic 64–88; PULSE 90–123; RESP 16–18; TEMP 36.7–37.4; O2SAT 92–98
[2021-07-20] MEDS: morphine 4 mg/mL SDV 1 mL 2 MG IVP ×3 (00:13→08:14)
[2021-07-20] MEDS: famotidine 20 mg/2 mL INJ IVP ×2 (02:28→17:16)
[2021-07-20] MEDS: enoxaparin 40 mg/0.4 mL Syringe SUBCUT (02:28)
--- NOTE | 2021-07-20 02:57 | PC.NURSE ---
0250 Awakens easily. reports 3-4/10 pain to abd. Pepcid IV given as scheduled. Will bring pain med when due.
--- NOTE | 2021-07-20 04:01 | PC.NURSE ---
0400 morphine 2 mg iv given as ordered for pain to abd. Ice chips given.
[2021-07-20 05:38] LABS: Basophils % 0.3 %; Eosinophils % 0.1 %; Hematocrit 33.5 % (37.0-47.0); Lymphocytes # 1.6 10^3/uL (0.8-4.8); Lymphocytes % 11.1 %; Mean Corpuscular HGB Conc 32.8 g/dL (30.0-36.0); Mean Corpuscular Hemoglobin 30.6 pg (28.0-34.0); Mean Corpuscular Volume 93.3 fl (81-99); Mean Platelet Volume 10.2 fL (7.4-10.4); Monocytes # 0.9 10^3/uL (0.2-0.9); Monocytes % 6.2 %; Neutrophils # 12.08 10^3/uL (1.8-7.7); Neutrophils % 81.9 %; Nucleated Red Blood Cells % 0 %; Platelet Count 265 10^3/cmm (130-400); Red Blood Count 3.59 10^6/uL (4.1-5.3); Red Cell Distribution Width 11.9 % (12.1-15.1); White Blood Count 14.8 10^3/uL (4.0-10.0)
[2021-07-20 06:05] LABS: Alanine Aminotransferase 14 U/L (0-33); Albumin Level 3.4 g/dL (3.5-5.2); Alkaline Phosphatase 68 IU/L (35-105); Anion Gap 13.4 (5-19); Aspartate Amino Transferase 13 U/L (0-32); Blood Urea Nitrogen 15 mg/dL (8-23); Calcium 7.3 mg/dL (8.5-10.5); Carbon Dioxide 23 mmol/L (22-29); Chloride 105 mmol/L (98-107); Globulin 2.5 g/dL (1.3-4.6); Glomerular Filtration Rate 99.4 mL/min (90-130); Glucose 112 mg/dL (65-115); Osmolality Calculated 286 mOsm/kg (285-295); Potassium 4.4 mmol/L (3.5-5.1); Sodium 137 mmol/L (136-145); Total Bilirubin 0.6 mg/dL (0.15-1.2); Total Protein 5.9 g/dL (6.6-8.7)
[2021-07-20 06:23] LABS: Magnesium 1.9 mg/dL (1.7-2.3)
[2021-07-20 06:30] LABS: Lipase 502 U/L (13-60)
[2021-07-20 06:34] LABS: Glucose Point of Care 104 mg/dL (70-110)
[2021-07-20] MEDS: sodium chlor 0.9% + KCl 20 mEq 20 MEQ/1,000 ML BAG 125 MEQ IV (06:50)
[2021-07-20] MEDS: ondansetron 2 mg/ML SDV 2 mL 4 MG IVP (08:14)
--- NOTE | 2021-07-20 08:50 | P.PN_ITS ---
Subjective Subjective: Interval history: Patient is to tachycardia list this morning Her leukocytosis are trending down, afebrile Patient is still endorsing epigastric pain, tender to palpate, I have started trial of clear liquid this morning, she tolerated clear liquid, however still endorsing nausea She is on room air, Vitals/I&O/Wt Last Vital Signs Temp 98.4 F 07/20/21 07:14 Pulse 122 H 07/20/21 07:14 Resp 18 07/20/21 08:14 BP 125/64 07/20/21 07:14 Pulse Ox 93 07/20/21 08:14 07/19/21 07/20/21 07/20/21 22:59 06:59 14:59 Intake Total 1050 / 2050 1000 / 3050 Output Total 350 / 350 200 / 550 Balance 700 / 1700 800 / 2500 Weight last 48 hrs Weight 61.235 kg Physical Exam Narrative: EXAM NARRATIVE: Laying supine On room in distress because of epigastric tenderness Tenderness on deep palpation otherwise no active signs of guarding or rigidity No acute respite distress S1, S2 sinus tachycardia Clinically looks dehydrated No signs of edema Appears anxious because of pain Data : 07/20/21 04:20 07/20/21 04:20 A&P Assessment and plan (1) Type 2 diabetes mellitus: Status: Acute (2) Cholelithiasis: Status: Acute (3) Pancreatitis: Status: Acute Qualifiers: Acute pancreatitis complication: unspecified Chronicity: acute Pa ncreatitis type: unspecified pancreatitis type Qualified Code(s): K85.90 - Acute pancreatitis without necrosis or infection, unspecified Additional A&P Information Severe pancreatitis Lipase and leukocytosis trending down Calcium 7.3 No signs of sepsis or necrosis No signs of cholangitis or choledocholithiasis No signs of ARDS Sinus tachycardia is persistent I believe it is secondary to pain and dehydration, will give her 1 L bolus challenge, advance her diet to clear liquid This most likely seems to be related to passage of gallstone, AST ALT normal bilirubin 0.6, she is afebrile Hold off on antibiotics for now Leukocytosis seems secondary to stress response She will need a lap daljit in next few weeks, appreciate general surgery recommendations Full code DVT prophylaxis on board Blood sugar 112 triglyceride not significantly high Attestations Medical Necessity Statement*: Continue medical management Time Spent in Patient Care: less than 15 minutes Coding Level of Care Code 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
--- NOTE | 2021-07-20 10:17 | PC.CHAP ---
Pastoral Care Encounter/Spiritual Assessment Type of Contact [] Declined coding clerks supervisor visit [] Patient/Family/Request visit [] Outpatient visit [] Follow-up visit [] Physician referral [] Code/Alert [x] Routine visit [] Staff referral [] Actively dying [] Patient sleeping [] Family support [] [] Out of room [] Palliative care [] [x] Receiving care in room [] Pre-surgical visit [] Trauma [] Long length of stay [] ICU visit [] Other: Relational/Emotional Strength [x] Patient feels connected with others/family/visitors/staff [] Distress [] Loneliness/isolation [] Abandonment Spirituality of Patient [x] Person of Crystal [] Attends Orthodoxy of their Crystal [x] Believes in Prayer [] Reads Bible or Jew materials [] There are Spiritual issues to be addressed 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 Interventions [x] Prayer [x] Active listening [x] Non-anxious presence [x] Spiritual/emotional support [] Crisis/trauma care [x] Spiritual counseling [] Bereavement support [] Provided bereavement packet [] Provided Bible/devotional materials [] Provided toy/stuffed animal, coloring book to patient or family member [] Provided Communion [] Anointing/[place] [] Salvation [x] Completed spiritual assessment [] Other: Impact on Illness or Injury [] Angry [] Fearful [x] Anxious [] Often cries [] Exhaustion [] Unable to work [] Unable to attend latter-day [] Unable to walk/stand [] Unable to read [] Unable to drive [] Unable to eat/drink [] Unable to sleep [] Unable to be with family [] Patient intubated [] Other: Summary had back surgery will need some [id number] time at home feels good has a good attitude Time spent with patient 10mnis
[2021-07-20] MEDS: lactated ringers 1,000 ML 999 ML IV (10:30)
[2021-07-20 10:56] LABS: Glucose Point of Care 140 mg/dL (70-110)
[2021-07-20] MEDS: metoprolol tartrate 1 mg/1 mL SDV 5 mL 2.5 MG IVP (11:07)
[2021-07-20] MEDS: lactated ringers 1,000 ML 100 ML IV ×2 (12:43→23:03)
[2021-07-20] MEDS: ketorolac 30 mg/mL INJ 15 MG IVP ×2 (13:27→23:58)
--- NOTE | 2021-07-20 16:04 | P.PN_ITS ---
Subjective Subjective: Interval history: Patient is feeling better, denies any nausea or vomiting, continues to have abdominal pain, tolerating clear liquid diet Vitals/I&O/Wt Last Vital Signs Temp 98.3 F 07/20/21 15:42 Pulse 114 H 07/20/21 15:42 Resp 16 07/20/21 15:42 BP 124/72 07/20/21 15:42 Pulse Ox 94 07/20/21 15:42 07/20/21 07/20/21 07/20/21 06:59 14:59 22:59 Intake Total 1000 / 3050 2108.75 / 2108.75 Output Total 200 / 550 Balance 800 / 2500 2108.75 / 2108.75 Weight last 48 hrs Weight 135 lb Physical Exam Narrative: EXAM NARRATIVE: Abdomen: Soft, mildly tender in the epigastric region, no guarding or rigidity Data : 07/20/21 04:20 07/20/21 04:20 A&P Assessment and plan (1) Gallstone pancreatitis: 66-year-old female with gallstone pancreatitis who is clinically improving. She is tolerating a clear liquid diet. White count is down to 14.8 and lipase is down to 502 Continue IV fluids Continue clear liquid diet, hopefully can be advanced to full liquid diet tomorrow Repeat labs tomorrow Pepcid for GI prophylaxis Lovenox for DVT prophylaxis Hopefully patient can go home in the next 24 to 48 hours and I will schedule her for a laparoscopic possible open cholecystectomy next week. Patient will need a COVID-19 testing prior to discharge for preop. 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
[2021-07-20 17:00] LABS: Glucose Point of Care 134 mg/dL (70-110)
[2021-07-20] MEDS: HYDROmorphone 1 mg/mL INJ 1 mL 0.5 MG IVP (20:12)
[2021-07-20 20:19] LABS: Glucose Point of Care 116 mg/dL (70-110)
--- NOTE | 2021-07-21 01:12 | PC.NURSE ---
2000Awake in bed. no distress. Call light in reach
--- NOTE | 2021-07-21 01:13 | PC.NURSE ---
2200 resting in bed. no distress.
--- NOTE | 2021-07-21 01:13 | PC.NURSE ---
0005 reports pain to bad 01/28. medi given as ordered.
[2021-07-21] MEDS: enoxaparin 40 mg/0.4 mL Syringe SUBCUT (03:07)
[2021-07-21 03:51] VITALS: BP 122/74; PULSE 94; RESP 18; TEMP 36.4; O2SAT 97
--- NOTE | 2021-07-21 04:25 | PC.NURSE ---
0200 Pt sleeping in bed. Easily arouses. reports Pain tolerable. No requests.
--- NOTE | 2021-07-21 04:25 | PC.NURSE ---
0400 Pt sleeping in bed. Resp e/u. IV infusing without diff. No distress.
[2021-07-21 05:01] VITALS: RESP 18
[2021-07-21] MEDS: HYDROmorphone 1 mg/mL INJ 1 mL 0.5 MG IVP (05:01)
[2021-07-21 05:32] LABS: Basophils % 0.3 %; Eosinophils # 0.2 10^3/uL (0.0-0.8); Eosinophils % 1.1 %; Hematocrit 31.4 % (37.0-47.0); Hemoglobin 10.2 g/dL (11.5-15.3); Lymphocytes # 1.9 10^3/uL (0.8-4.8); Lymphocytes % 13.9 %; Mean Corpuscular HGB Conc 32.5 g/dL (30.0-36.0); Mean Corpuscular Hemoglobin 30.5 pg (28.0-34.0); Mean Platelet Volume 10.1 fL (7.4-10.4); Monocytes # 0.9 10^3/uL (0.2-0.9); Monocytes % 6.4 %; Neutrophils # 10.87 10^3/uL (1.8-7.7); Neutrophils % 77.7 %; Nucleated Red Blood Cells % 0 %; Platelet Count 234 10^3/cmm (130-400); Red Blood Count 3.34 10^6/uL (4.1-5.3); Red Cell Distribution Width 11.7 % (12.1-15.1)
[2021-07-21 05:46] LABS: Alanine Aminotransferase 11 U/L (0-33); Albumin Level 3.2 g/dL (3.5-5.2); Alkaline Phosphatase 62 IU/L (35-105); Anion Gap 14.2 (5-19); Aspartate Amino Transferase 12 U/L (0-32); Blood Urea Nitrogen 8 mg/dL (8-23); Calcium 7.6 mg/dL (8.5-10.5); Carbon Dioxide 22 mmol/L (22-29); Chloride 108 mmol/L (98-107); Globulin 2.5 g/dL (1.3-4.6); Glomerular Filtration Rate 99.4 mL/min (90-130); Glucose 105 mg/dL (65-115); Osmolality Calculated 289 mOsm/kg (285-295); Potassium 4.2 mmol/L (3.5-5.1); Sodium 140 mmol/L (136-145); Total Bilirubin 0.7 mg/dL (0.15-1.2); Total Protein 5.7 g/dL (6.6-8.7)
[2021-07-21 05:57] LABS: Lipase 56 U/L (13-60)
[2021-07-21] MEDS: famotidine 20 mg/2 mL INJ IVP (06:04)
[2021-07-21 06:19] LABS: Estmated Average Glucose 148; Hemoglobin A1C 6.8 % (4.0-6.0)
[2021-07-21 07:20] VITALS: BP 134/77; PULSE 92; RESP 18; TEMP 36.5; O2SAT 95
[2021-07-21] MEDS: lactated ringers 1,000 ML 100 ML IV (07:34)
--- NOTE | 2021-07-21 08:10 | P.PN_ITS ---
Subjective Subjective: Interval history: Patient has been doing well, tolerating clear liquid diet, appetite is improved, denies any nausea or vomiting though still has some abdominal pain Vitals/I&O/Wt Last Vital Signs Temp 97.7 F 07/21/21 07:20 Pulse 92 07/21/21 07:20 Resp 18 07/21/21 07:20 BP 134/77 07/21/21 07:20 Pulse Ox 95 07/21/21 07:20 07/20/21 07/21/21 07/21/21 22:59 06:59 14:59 Intake Total 1620 / 3928.75 200 / 3928.75 851.667 / 851.667 Output Total 1300 / 1300 Balance 1620 / 2628.75 -1100 / 2628.75 851.667 / 851.667 Physical Exam Narrative: EXAM NARRATIVE: Abdomen: Soft, mildly tender in the epigastric region, no guarding or rigidity Data : 07/21/21 04:32 07/21/21 04:32 A&P Assessment and plan (1) Gallstone pancreatitis: Overall doing well, lipase down to 56 . 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
[2021-07-21 08:38] LABS: Glucose Point of Care 104 mg/dL (70-110)
--- NOTE | 2021-07-21 09:25 | PM.DCS ---
Discharge Providers Date of Admission: 07/19/21 02:27 Date of Discharge: July 21, 2021 Attending Provider at Admission: Kristen Andujar MD Attending Provider at Discharge: Sol Finn MD Primary Care Provider: Erna Hunter NP Diagnoses at Discharge Discharge Diagnosis (1) Gallstone pancreatitis: Status: Acute Reason for Visit Reason for Visit: [facility] Hospital Course Hospital Course 66-year-old female who was admitted for evaluation of severe pancreatitis. Her white count was 20,000 on admission, lipase and leukocytosis improved. She did not require any antibiotics. No signs of sepsis or necrosis of pancreas. Her diet was advanced to clear liquid which she was able to tolerate. White count on discharge 14,000. She has been afebrile. Dr. Espinoza planning to do laparoscopic cholecystectomy 27 July 2021, she will be given Levaquin and Flagyl 7-day course. She was asked to keep herself on liquid diet for now, her pancreatitis most likely is related to gallstones, nonobstructing, recurrent nausea vomiting related to pancreatitis and sentinel loop, she is tolerating liquid diet for now. She will be discharged home on 07/21. MRCP was obtained which showed no evidence of choledocholithiasis or acute cholecystitis it was positive for edematous pancreatitis and cholelithiasis positive for distended gallbladder and gallstones no signs of cholangitis Physical Exam Narrative: EXAM NARRATIVE: Laying supine Abdominal pain slightly better as compared to yesterday, patient stating is 3 out of 10 Tenderness on deep palpation otherwise no active signs of guarding or rigidity No acute respite distress S1, S2 sinus tachycardia Clinically looks dehydrated No signs of edema Looks well rested today Discharge Data Data Completed and Pending: Completed Studies During Hospitalization Category Date Time Status CT abdomen pelvis w con* [id number] Stat Cat Scan 07/18/21 17:59 Completed XR chest 1V shanell ble [id number] Stat Exams 07/18/21 17:59 Completed MR MRCP [id number] Urg ent MRI 07/18/21 21:16 Completed US gall bladder 7 [id number] Urgent Ultrasound 07/18/21 19:34 Completed Pending at discharge Category Date Time Status Lipase AM LABS Lab 07/22/21 04:00 Ordered Labs from last 24 hours 07/21/21 07/21/21 07/21/21 06:13 04:32 04:32 WBC RBC Hgb Hct MCV MCH MCHC RDW Plt Count MPV Neut % (Auto) Lymph % (Auto) [place] % (Auto) Eos % (Auto) Baso % (Auto) Neut # (Auto) Lymph # (Auto) [place] # (Auto) Eos # (Auto) Baso # (Auto) Nucleated RBC % (a uto) Nucleated RBCs # Sodium 140 Potassium 4.2 Chloride 108 H Carbon Dioxide 22 Anion Gap 14.2 BUN 8 Creatinine 0.6 GFR Calculation 99.4 Glucose 105 POC Glucose 104 Estimat Average Gl ucose 148 Hemoglobin A1c 6.8 H Calculated Osmolal ity 289 Calcium 7.6 L Total Bilirubin 0.7 AST 12 ALT 11 Alkaline Phosphata se 62 Total Protein 5.7 L Albumin 3.2 L Globulin 2.5 Lipase 07/21/21 07/21/21 07/20/21 04:32 04:32 20:17 WBC 14.0 H RBC 3.34 L Hgb 10.2 L Hct 31.4 L MCV 94.0 MCH 30.5 MCHC 32.5 RDW 11.7 L Plt Count 234 MPV 10.1 Neut % (Auto) 77.7 Lymph % (Auto) 13.9 [place] % (Auto) 6.4 Eos % (Auto) 1.1 Baso % (Auto) 0.3 Neut # (Auto) 10.87 H Lymph # (Auto) 1.9 [place] # (Auto) 0.9 Eos # (Auto) 0.2 Baso # (Auto) 0.0 Nucleated RBC % (a uto) 0 Nucleated RBCs # 0.0 Sodium Potassium Chloride Carbon Dioxide Anion Gap BUN Creatinine GFR Calculation Glucose POC Glucose 116 H Estimat Average Gl ucose Hemoglobin A1c Calculated Osmolal ity Calcium Total Bilirubin AST ALT Alkaline Phosphata se Total Protein Albumin Globulin Lipase 56 07/20/21 07/20/21 16:54 10:45 WBC RBC Hgb Hct MCV MCH MCHC RDW Plt Count MPV Neut % (Auto) Lymph % (Auto) [place] % (Auto) Eos % (Auto) Baso % (Auto) Neut # (Auto) Lymph # (Auto) [place] # (Auto) Eos # (Auto) Baso # (Auto) Nucleated RBC % (a uto) Nucleated RBCs # Sodium Potassium Chloride Carbon Dioxide Anion Gap BUN Creatinine GFR Calculation Glucose POC Glucose 134 H 140 H Estimat Average Gl ucose Hemoglobin A1c Calculated Osmolal ity Calcium Total Bilirubin AST ALT Alkaline Phosphata se Total Protein Albumin Globulin Lipase Vitals: Last Vital Signs Temp 97.7 F 07/21/21 07:20 Pulse 92 07/21/21 07:20 Resp 18 07/21/21 07:20 BP 134/77 07/21/21 07:20 Pulse Ox 95 07/21/21 07:20 Discharge Plan Discharge Patient Disposition: Home Condition: Stable Prescriptions: New levofloxacin 750 mg tablet 750 mg PO DAILY 7 Days Qty: 7 RF: 0 Zofran 4 mg tablet 4 mg PO Q8H 5 Days Qty: 15 RF: 0 Flagyl 500 mg tablet 500 mg PO Q8H 7 Days Qty: 21 RF: 0 Continued atorvastatin 40 mg tablet 40 mg PO DAILY RF: 0 Lantus U-100 Insulin 100 unit/mL solution 15 unit SUBCUT BEDTIME RF: 0 alendronate 70 mg tablet 70 mg PO Q7D RF: 0 glipizide 5 mg tablet extended release 24hr 5 mg PO BID RF: 0 metformin 1,000 mg tablet 1,000 mg PO BID RF: 0 aspirin 81 mg Tablet,Chewable 81 mg PO DAILY RF: 0 ramipril 10 mg capsule 10 mg PO DAILY RF: 0 Vitamin D3 25 mcg (1,000 unit) Capsule 25 mcg PO DAILY RF: 0 metoprolol tartrate 25 mg tablet 25 mg PO BID RF: 0 coenzyme Q10 50 mg Tablet 50 mg PO DAILY RF: 0 Discharge Orders: Discharge Order (Routine); Ordered 07/21/21 Ordered By: Sol Finn Referrals: Erna Hunter, [employer]PL[employer] [Primary Care Provider] - Discharge Diet: Full LIquid Discharge Activity: Increase activity as tolerated Patient Instructions: Opioid Safety Activity Restrictions/Additional Instructions: Please use liquid diet for now, finish 7 day antibiotic regimen, see Dr. Espinoza next for surgery Discharge Attestations Time Spent in Discharge Care*: less than 30 min Quality Metrics Clinical Quality Measures During this hospital stay, did patient experience: None Coding Level of Care Code Acute g [facility] note Diagnoses Gallstone pancreatitis K85.10
[2021-07-21] MEDS: ketorolac 30 mg/mL INJ 15 MG IVP (10:18)
[2021-07-21 11:07] VITALS: BP 148/81; PULSE 83; RESP 16; TEMP 36.6; O2SAT 95
[2021-07-21 11:23] LABS: Glucose Point of Care 142 mg/dL (70-110)
[2021-07-21 12:43] VITALS: BP 148/81; PULSE 83; RESP 16; TEMP 36.6; O2SAT 95
== END 2021-07-21 12:44 | disposition home or self-care (01) | DRG 440 ==
LOC: ER 23:56 → ER IP 07-19 02:28 → MEDSURG 07-19 15:56
PROVIDERS: Family Medicine; Surgery; Admitting Provider Student in an Organized Health Care Education/Training Program; Emergency Provider Emergency Medicine; PCP Nurse Practitioner Family; Visit Provider Internal Medicine
DX: K85.10 Biliary acute pancreatitis without necrosis or infection (principal); K80.20 Calculus of gallbladder without cholecystitis without obstruction; E11.9 Type 2 diabetes mellitus without complications; Z79.4 Long term (current) use of insulin; Z79.84 Long term (current) use of oral hypoglycemic drugs; Z79.82 Long term (current) use of aspirin
CPT/HCPCS: 36415; 36416; 71045; 74177; 74181; 76705; 80048; 80053; 80306; 80307; 81003; 82962; 83036; 83605; 83690; 83735; 84478; 85025; 93005; 96365; 96372; 96375; 99285; J0692; J1170; J1650; J1885; J1956; J2270; J2405; J3475; J3490; J7030; Q9967

== ENCOUNTER → 2021-07-24 13:35 | Outpatient (BNVA) | payer MEDICARE, SELFPAY | PROVIDERS: PCP Nurse Practitioner Family; Visit Provider Surgery | DX: Z11.52 Encounter for screening for COVID-19 (principal); K80.20 Calculus of gallbladder without cholecystitis without obstruction | CPT/HCPCS: 85025; 87635 ==

== ENCOUNTER 2021-07-27 08:43 | Day surgery (SDC) | payer MEDICARE, SELFPAY ==
[2021-07-25 12:44] VITALS: BMI 21.8
[2021-07-27] VITALS (20 sets, daily range): BP systolic 99–164; BP diastolic 62–95; PULSE 72–112; RESP 16–22; TEMP 36.1–36.8; O2SAT 93–99
[2021-07-27] MEDS: sodium chloride 0.9% 1,000 ML 30 ML IV (09:37)
[2021-07-27 09:46] LABS: Glucose Point of Care 165 mg/dL (70-110)
--- NOTE | 2021-07-27 10:38 | W.PM.OPSFHP ---
Same Day Surgery H&P Indication for Procedure/HPI DATE OF PROCEDURE: July 27, 2021 CHIEF COMPLAINT/INDICATIONFOR SURGICAL PROCEDURE: Gallstones pancreatitis, plan for cholecystectomy today PREOP DIAGNOSIS: Gallstone pancreatitis PLANNED PROCEDRUE: Operation Date: 07/27/21 10:45 Proposed Procedures p Laparoscopic Cholecystectomy 02047/K80.20(Not Applicable) - Zoran Espinoza MD Medications/Allergies* Home Medications Medication Instructions Recorded Confirmed Type Lantus U-100 Insulin 15 unit SUBCUT BEDTIME 07/19/21 07/27/21 History alendronate 70 mg PO Q7D 07/19/21 07/25/21 History aspirin 81 mg PO DAILY 07/19/21 07/25/21 History atorvastatin 40 mg PO DAILY 07/19/21 07/25/21 History cholecalciferol (vitamin D3) 25 mcg PO DAILY 07/19/21 07/25/21 History [Vitamin D3] coenzyme Q10 50 mg PO DAILY 07/19/21 07/27/21 History glipizide 5 mg PO BID 07/19/21 07/27/21 History metformin 1,000 mg PO BID 07/19/21 07/27/21 History metoprolol tartrate 25 mg PO BID 07/19/21 07/27/21 History ramipril 10 mg PO DAILY 07/19/21 07/27/21 History Allergies/Adverse Reactions Allergy/AdvReac Type Severity Reaction Status Date / Time Penicillins Allergy ALGY-Hives Verified 07/25/21 12:41 Current Medications: Generic Name Dose Route Start Last Admin Trade Name Freq PRN Reason Stop Dose Admin Sodium Chloride 1,000 mls @ 30 mls/hr 07/27/21 09:00 07/27/21 09:37 Sodium Chloride 0.9% IV 07/28/21 08:59 30 mls/hr .Q24H DIANNA Administration Pertinent History/Comorbid Conditions* Medical History (Updated 07/22/21 @ 00:01 by ) Gallstone pancreatitis Type 2 diabetes mellitus Surgical History (Updated 07/20/21 @ 07:23 by Zoran Espinoza MD) H/O: hysterectomy Pertinent Exam Findings alert, oriented x 3 and regular rate & rhythm Recommendations Surgery/Procedure today Coding Level of Care Code 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
[2021-07-27] MEDS: levofloxacin-dextrose 5 % 500 MG/100 ML PREMIX 100 MG IV (12:10)
--- NOTE | 2021-07-27 12:59 | PM.OP ---
Operative Report Date of procedure: July 27, 2021 Pre-op Diagnosis: 1. Gallstone pancreatitis 2. MRCP negative for choledocholithiasis 3. Normal LFTs 07/26/2021 Post-op diagnosis: same Procedure Done: Laparoscopic cholecystectomy Specimens removed/disposition: Gallbladder Surgeon: Zoran Espinoza Anesthesia: General Condition: stable Disposition: PACU Procedure: The patient was taken to the operating room and was intubated under general anesthesia. After the antibiotic had been administered, the abdomen was prepped and draped in a sterile manner. Using a #15 blade, a 1 centimeter infraumbilical curvilinear incision was made and using an open Akira technique the peritoneal cavity was entered. A 10 millimeter port was placed and 15 millimeters of pneumoperitoneum was created. A 10 millimeter, 30 degrees scope was then introduced. Three 5 millimeter ports were placed in the epigastric, midclavicular and the anterior axillary line two fingerbreadths below the costal margin on the right side under the direct visualization. Ratcheted forceps were introduced into the lateral most port and was used to retract the fundus of the gallbladder cephalad and using forceps the infundibulum of the gallbladder was retracted laterally. Using L-hook cautery the peritoneum overlying the Calot's triangle was opened medially and laterally until the cystic duct and the cystic artery were skeletonized. Dissection was carried along the body of the gallbladder and after ensuring critical view of safety, 4 clips applied on the cystic duct and 3 clips applied on the cystic artery and cut leaving, 3 clips on the remaining portion of the duct and 2 clips on the remaining portion of the artery. The rest of the gallbladder was dissected off the liver using L-hook cautery. There was no bleeding or bile leaking noted from the gallbladder fossa and the clips appeared to be in place. An EndoCatch bag was introduced to remove the gallbladder. All the ports were removed under direct visualization and there was no bleeding noted from the port sites. The fascia of the umbilicus was closed using [id number] 0 Vicryl sutures and the subcutaneous tissue was approximated using 3-0 Vicryl sutures. The skin at all four ports were closed using 4-0 Monocryl and Dermabond. A total of 10 millimeters of 0.5% Marcaine was infiltrated around the port sites. The patient was stable throughout the procedure.
--- NOTE | 2021-07-27 13:19 | SUR.PHASEI ---
patient arrives into pacu on room air with sats at 97%. 4 sites with dermabond. abd soft.
[2021-07-27] MEDS: fentaNYL 50 mcg/mL INJ 2mL IVP (13:28)
--- NOTE | 2021-07-27 13:32 | ANE.PACU2 ---
Inpatient post-anesthesia follow up: Airway intact: Yes Vital signs: Temperature 98.0 F Pulse Rate 79 Respiratory Rate 16 Blood Pressure 99/65 Pulse Oximetry 98 Oxygen Delivery Me thod Room Air Oxygen Flow Rate Fraction of Inspir ed Oxygen Hydration adequate: Yes Mental status: Baseline
[2021-07-27] MEDS: HYDROmorphone 1 mg/mL INJ 1 mL 0.5 MG IVP ×3 (13:37→13:59)
--- NOTE | 2021-07-27 13:39 | SUR.PHASEI ---
pt complains of pain in abd, medicated per orders.
--- NOTE | 2021-07-27 13:53 | SUR.PHASEI ---
patient medicated for pain per orders, pt states pain still at 8/10. orders to admin 1mg dilaudid to make 2mg total.
--- NOTE | 2021-07-27 14:08 | SUR.PHASEI ---
report given to mei richardson. plan to take pt back to ops soon.
[2021-07-27] MEDS: HYDROcodone-acetaminophen 5-325 mg Tablet 1 TAB PO (14:35)
[2021-07-27] MEDS: ondansetron 2 mg/ML SDV 2 mL 4 MG IVP (14:47)
[2021-07-27] MEDS: diphenhydrAMINE 50 mg/mL SDV 1mL 12.5 MG IVP (15:20)
== END 2021-07-27 15:41 | disposition home or self-care (01) ==
PROVIDERS: PCP Nurse Practitioner Family; Visit Provider Surgery
PROC: 0FT44ZZ Resection of Gallbladder, Percutaneous Endoscopic Approach (ICD-10-PCS; CPT 47562; principal; 2021-07-27 10:45)
DX: K80.10 Calculus of gallbladder with chronic cholecystitis without obstruction (principal); K85.10 Biliary acute pancreatitis without necrosis or infection; E11.9 Type 2 diabetes mellitus without complications; Z79.4 Long term (current) use of insulin; Z79.84 Long term (current) use of oral hypoglycemic drugs
CPT/HCPCS: 47562; 36416; 82962; 88304; 96374; 96375; J1100; J1170; J1200; J1956; J2405; J2704; J2710; J3010; J3490; J7030

== ENCOUNTER → 2021-09-22 14:17 | Outpatient (BNVA) | payer MEDICARE, SELFPAY | PROVIDERS: PCP Nurse Practitioner Family; Visit Provider Family Medicine Adult Medicine | DX: I10 Essential (primary) hypertension (principal); E11.69 Type 2 diabetes mellitus with other specified complication; E78.5 Hyperlipidemia, unspecified; M81.0 Age-related osteoporosis without current pathological fracture; K80.20 Calculus of gallbladder without cholecystitis without obstruction | CPT/HCPCS: 80053; 83036; 83690; 85025 ==

== ENCOUNTER → 2022-01-10 09:05 | Outpatient (BNVA) | payer MEDICARE, SELFPAY | PROVIDERS: PCP Family Medicine Adult Medicine; Visit Provider Family Medicine Adult Medicine | DX: E11.69 Type 2 diabetes mellitus with other specified complication (principal); E78.5 Hyperlipidemia, unspecified; E11.43 Type 2 diabetes mellitus with diabetic autonomic (poly)neuropathy; K31.84 Gastroparesis; D64.9 Anemia, unspecified; M17.0 Bilateral primary osteoarthritis of knee | CPT/HCPCS: 80061; 83036; 85025 ==

== ENCOUNTER → 2022-02-27 07:52 | Outpatient (BNVA) | payer MEDICARE, SELFPAY | PROVIDERS: PCP Family Medicine Adult Medicine; Referring Provider Family Medicine Adult Medicine; Visit Provider Orthopaedic Surgery | DX: M17.0 Bilateral primary osteoarthritis of knee (principal) | CPT/HCPCS: 73560; 73565; 99204 ==

== ENCOUNTER → 2022-04-25 15:29 | Outpatient (BNVA) | payer MEDICARE, SELFPAY | PROVIDERS: PCP Family Medicine Adult Medicine; Visit Provider Family Medicine Adult Medicine | DX: Z23 Encounter for immunization (principal); E11.43 Type 2 diabetes mellitus with diabetic autonomic (poly)neuropathy; K31.84 Gastroparesis; E11.9 Type 2 diabetes mellitus without complications; I10 Essential (primary) hypertension; M17.0 Bilateral primary osteoarthritis of knee; E11.69 Type 2 diabetes mellitus with other specified complication; E78.5 Hyperlipidemia, unspecified; M81.0 Age-related osteoporosis without current pathological fracture | CPT/HCPCS: 80053; 83036 ==

== ENCOUNTER → 2022-09-04 13:56 | Outpatient (BNVA) | payer MEDICARE, SELFPAY | PROVIDERS: PCP Family Medicine Adult Medicine; Visit Provider Family Medicine Adult Medicine | DX: E11.43 Type 2 diabetes mellitus with diabetic autonomic (poly)neuropathy (principal); K31.84 Gastroparesis; E11.9 Type 2 diabetes mellitus without complications; E11.69 Type 2 diabetes mellitus with other specified complication; I10 Essential (primary) hypertension; M17.0 Bilateral primary osteoarthritis of knee; E78.5 Hyperlipidemia, unspecified | CPT/HCPCS: 80053; 83036 ==

== ENCOUNTER → 2022-11-18 13:37 | Outpatient (BNVA) | payer MEDICARE, SELFPAY | PROVIDERS: PCP Family Medicine Adult Medicine; Visit Provider Registered Nurse Neonatal Intensive Care | DX: J02.9 Acute pharyngitis, unspecified (principal); H66.001 Acute suppurative otitis media without spontaneous rupture of ear drum, right ear | CPT/HCPCS: 87071; 87880 ==

== ENCOUNTER → 2023-01-08 10:05 | Outpatient (BNVA) | payer MEDICARE, SELFPAY | PROVIDERS: PCP Family Medicine Adult Medicine; Visit Provider Family Medicine Adult Medicine | DX: E11.43 Type 2 diabetes mellitus with diabetic autonomic (poly)neuropathy (principal); K31.84 Gastroparesis; E11.9 Type 2 diabetes mellitus without complications; R94.4 Abnormal results of kidney function studies; I10 Essential (primary) hypertension | CPT/HCPCS: 80048; 83036 ==

== ENCOUNTER 2023-07-09 14:49 | Outpatient (CLI) | payer MEDICARE, SELFPAY ==
--- NOTE | 2023-07-09 14:56 | MM_ITS ---
WS: [id number] BILATERAL 3D TOMOSYNTHESIS DIGITAL SCREENING MAMMOGRAPHY WITH CAD CLINICAL INFORMATION: Z12.39 - Encounter for other screening for malignant neop... HISTORY: Screening mammogram. No current complaints. COMPARISON: 2018 TECHNIQUE: Bilateral CC and MLO views. FINDINGS: The breasts are composed of heterogeneous fibroglandular density tissue, which can limit the detectio n of small underlying mass lesions. No suspicious mass, asymmetry, calcifications, or architectural d istortion. No evidence of malignancy. Punctate and lucent centered calcifications. Vascular calcifica tion. IMPRESSION: MM/[place] [id number] BI-RADS: 2-Benign FOLLOW UP: 1 Year Follow-up Recommend return to annual screening mammography.
== END 2023-07-09 14:50 | disposition home or self-care (01) ==
LOC: RAD 14:50
PROVIDERS: PCP Family Medicine; Visit Provider Family Medicine
DX: Z12.31 Encounter for screening mammogram for malignant neoplasm of breast (principal)
CPT/HCPCS: 77063; 77067

== ENCOUNTER 2023-09-24 08:29 | Outpatient (CLI) | payer MEDICARE, SELFPAY ==
--- NOTE | 2023-09-24 08:50 | XRR_ITS ---
PROCEDURE INFORMATION: Exam: XR Left Shoulder Exam date and time: 09/24/2023 9:04 AM Age: 68 years old Clinical indication: Pain; Shoulder; Left; Additional info: Pain in left shoulder TECHNIQUE: Imaging protocol: Radiologic exam of the left shoulder. Views: 2 or more views. COMPARISON: CR XR chest 1V portable [id number] 07/18/2021 6:13 PM FINDINGS: Bones/joints: No acute fracture or dislocation. Joint spaces are preserved. Soft tissues: Normal. XR/XR shoulder LT min 2V* [id number] IMPRESSION: No acute fracture or dislocation.
== END 2023-09-24 08:30 | disposition home or self-care (01) ==
LOC: RAD 08:31
PROVIDERS: PCP Family Medicine; Visit Provider Family Medicine
DX: M25.512 Pain in left shoulder (principal)
CPT/HCPCS: 73030

== ENCOUNTER 2024-07-13 15:28 | Outpatient (CLI) | payer MEDICARE, SELFPAY ==
--- NOTE | 2024-07-13 | MM_ITS ---
WS: [id number] BILATERAL 3D TOMOSYNTHESIS DIGITAL SCREENING MAMMOGRAPHY WITH CAD CLINICAL INFORMATION: ANNUAL SCREEN HISTORY: Screening mammogram. No current complaints. COMPARISON: 2022 TECHNIQUE: Bilateral CC and MLO views. FINDINGS: The breasts are composed of heterogeneous fibroglandular density tissue, which can limit the detectio n of small underlying mass lesions. No suspicious mass, asymmetry, calcifications, or architectural d istortion. No evidence of malignancy. Punctate and lucent centered calcifications. Vascular calcifica tion. Secretory calcifications. MM/MM [facility] tomosynthesis [id number] IMPRESSION: DENSITY: The breasts are heterogeneously dense, which may obscure small masses. BI-RADS: 2 - Benign FOLLOW UP: 1 Year Follow-up Recommend return to annual screening mammography.
== END 2024-07-13 15:29 | disposition home or self-care (01) ==
LOC: RAD 15:29
PROVIDERS: PCP Family Medicine; Visit Provider Family Medicine
DX: Z12.31 Encounter for screening mammogram for malignant neoplasm of breast (principal); R92.333 Mammographic heterogeneous density, bilateral breasts; R92.1 Mammographic calcification found on diagnostic imaging of breast
CPT/HCPCS: 77063; 77067